=== PATIENT | male | born 1985 | race Caucasian/White ===

== ENCOUNTER 2017-08-26 14:51 | Emergency (ER) | payer SELFPAY ==
--- NOTE | 2017-08-26 15:34 | ER Document Report ---
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 He states that the bleeding is controlled, he applied a pressure dressing at home. He reports his last tetanus was given here. He has taken ibuprofen with no improvement of pain at home. TRAVEL OUTSIDE OF THE [place] IN LAST 30 DAYS: No - Related Data Allergies/Adverse Reactions: No Known Allergies Allergy (Verified 08/26/17 14:52) Past Medical History - General Information source: Patient - Social History Smoking Status: Current Every Day Smoker Family History: Reviewed & Not Pertinent Pulmonary Medical History: Reports: Hx Asthma Past Surgical History: Reports: Hx Appendectomy, Hx Orthopedic Surgery - right rotator cuff - Immunizations Immunizations up to date: Yes Hx Diphtheria, Pertussis, Tetanus Vaccination: Yes - unknown Review of Systems - Review of Systems Constitutional: No symptoms reported EENT: No symptoms reported Cardiovascular: No symptoms reported Respiratory: No symptoms reported Gastrointestinal: No symptoms reported Genitourinary: No symptoms reported Male Genitourinary: No symptoms reported Musculoskeletal: No symptoms reported Skin: See HPI Hematologic/Lymphatic: No symptoms reported Neurological/Psychological: No symptoms reported Physical Exam - Vital signs Vitals: Temp Pulse Resp BP Pulse Ox 98.6 F 101 H 17 137/80 H 97 08/26/17 14:55 08/26/17 14:55 08/26/17 14:55 08/26/17 14:55 08/26/17 14:55 - Notes Notes: PHYSICAL EXAM: CONSTITUTIONAL: Alert and oriented, well-appearing and in no acute distress. Speaking in full sentences without difficulty, sitting upright on exam bed. HENT: Normocephalic, atraumatic. Trachea midline. Uvula midline. Moist mucous membranes. EYES: Pupils equal round and reactive to light, EOM intact. Sclera anicteric, conjunctiva are normal. No entrapment. NECK: supple without lymphadenopathy. No midline tenderness or paraspinous muscle spasms. No step-offs or deformities. ROM intact. HEART: Regular rate and rhythm without murmurs. LUNGS: CTAB and equal. No wheezes, rales or rhonchi. EXTREMITIES: no bony tenderness, erythema, edema, ecchymosis or deformity. Normal range of motion, no pitting edema. No cyanosis. Cap Refill <3 seconds. NEURO: Cranial nerves grossly intact. Normal sensory/motor exams. PSYCH: Normal mood, normal affect. SKIN: Warm and dry. Normal turgor. 1.3 cm irregular shaped laceration to tip of 3rd digit on left hand not involving nail. Course - Re-evaluation Re-evalutation: 08/26/17 16:47 Patient seen and examined. 1.3 cm irregular shaped laceration to pulp of 3rd digit on left hand, bleeding controlled with pressure dressing. Unable to approximate edges, xray obtained, no bony involvement to wound. Tetanus is UTD. Digital block performed for pain relief and wound was cleaned with betadine solution. Wound will be left to heal by secondary intention, applied local abx ointment and will treat with oral abx to cover for empiric infection. Discussed wound care at home. - Vital Signs Vital signs: Temp Pulse Resp BP Pulse Ox 98.6 F 101 H 17 137/80 H 97 08/26/17 14:55 08/26/17 14:55 08/26/17 14:55 08/26/17 14:55 08/26/17 14:55 - Diagnostic Test Radiology reviewed: Image reviewed, Reports reviewed Procedures - Laceration/Wound Repair Left 3rd digit Wound length (cm): 1.3 Wound's Depth, Shape: Irregular Laceration pre-procedure: Betadine prep applied Anesthetic type: 1% Lidocaine - 7 cc Volume Anesthetic (mLs): 7 Wound explored: Clean Wound Debrided: Minimal Post-procedure wound care: Sterile dressing applied Post-procedure NV exam normal: Yes Complications: No Notes: 08/26/17 17:50 Unable to approximate edges, patient did not have piece of tissue that he cut off with him. Wound will have to heal by secondary intention. Discharge - Discharge Clinical Impression: Laceration of finger of left hand Qualifiers: Encounter type: initial encounter Finger: middle finger Damage to nail status: without damage Foreign body presence: without foreign body Qualified Code(s): S61.213A - Laceration without foreign body of left middle finger without damage to nail, initial encounter Condition: Stable Disposition: HOME, SELF-CARE Additional Instructions: NON-SUTURED LACERATION: Your laceration did not require suturing. Some lacerations cannot be sutured because of increased infection risk, while others simply don't need stitches because they are shallow or very short. Your injury should be protected while it heals. Usually complete healing takes 10 to 14 days. Keep the dressing clean and dry, and change it every day. If you notice increasing pain, redness, swelling, drainage, or tender lumps in the armpit or groin above the injury, infection may be present. You should call the doctor at once. SOAP CLEANSING: Gently wash the wound daily using a mild soap (like Ivory, Phisoderm, Neutrogena). Use warm water, rubbing gently until all debris, ooze, and crusting have been washed from the wound. Allow to dry briefly (about 10 minutes) after cleaning. Repeat this cleansing at least three times a day for the first two days and then once or twice a day. ANTIBIOTIC OINTMENT PROTECTION: Your wounds are such that dressing them is not practical or optional. After cleansing, you should apply a thin coating of antibiotic ointment ( Bacitracin, not Neosporin) to the wounds at least three times daily. This lessens infection risk, and may decrease the amount of scarring. Use a q-tip or dull butter knife, not your finger, to apply this ointment. Any debris or ooze which builds up in the ointment should be gently rubbed off with a sterile gauze pad. Harder crusting may need to be gently scrubbed off with a clean wash cloth with soap and warm water, perhaps applying a warm, wet wash cloth to the wound for ten minutes first. Development of redness, severe itching, or blistering may mean allergy to the ointment. See the doctor. PROPHYLACTIC ANTIBIOTIC: The antibiotics which have been prescribed are designed to decrease the risk of infection. Only certain types of wounds benefit from this -- the typical cut, scrape, or burn DOES NOT require antibiotics. Of course, infection can still occur despite the use of prophylactic antibiotics. Your wound will heal with less chance of an infectious complication if you take the medication as directed. The most important dose is the FIRST dose, so don't delay filling the prescription! ORAL NARCOTIC MEDICATION: You have been given a prescription for pain control. This medication is a narcotic. It's best taken with food, as nausea can result if taken on an empty stomach. Don't operate machinery or drive within six hours of taking this medication. Do not combine this medicine with alcohol, or with any medication which can cause sedation (such as cold tablets or sleeping pills) unless you get permission from the physician. Narcotics tend to cause constipation. If possible, drink plenty of fluids and eat a diet high in fiber and fruits. FOLLOW-UP CARE: Please return in ___5__ days for an infection check and dressing change. If you have been referred to another physician for follow-up care, call that physicians office for an appointment as you were instructed. If you experience a significant change in your laceration, or if you are concerned there may be an infection (swelling, redness, drainage, increasing tenderness, red streaks, tender lumps in the armpit or groin above the laceration, or fever) , return to the Emergency Department immediately re-evaluation. Prescriptions: Cephalexin Monohydrate [Keflex 500 mg Capsule] 500 mg PO Q6H 7 Days capsule Hydrocodone/Acetaminophen [[place] 5-325 mg Tablet] 1 tab PO Q6H PRN #12 tablet PRN Reason: Forms: Elevated Blood Pressure, Return to Work Referrals: ALEJANDRO SOTELO MD [ACTIVE STAFF] - Follow up in 1 week
[2017-08-26] MEDS ORDERED: HYDROCODONE/ACETAMINOPHEN 5-325 MG TABLET PO ONE (15:38)
--- NOTE | 2017-08-26 16:10 | RADIOLOGY REPORT (SQ) ---
EXAM DESCRIPTION: HAND LEFT 3 VIEWS COMPLETED DATE/TIME: 08/26/2017 3:55 pm REASON FOR STUDY: laceration to tip of middle finger COMPARISON: None. EXAM PARAMETERS: NUMBER OF VIEWS: Three views. TECHNIQUE: AP, lateral and oblique radiographic images acquired of the left hand. LIMITATIONS: None. FINDINGS: Laceration along the left 3rd finger tip. No retained radiopaque foreign body. No underl lee injury to the distal tuft 3rd finger distal phalanx. Artifact from overlying gauze. IMPRESSION: No acute bony injury. TECHNICAL DOCUMENTATION: JOB ID: [id number] [employer]- All Rights Reserved
[2017-08-26] MEDS ORDERED: LIDOCAINE 1% INJ (10 MG/ML) 10 ML MDV INJ ONE (16:56)
[2017-08-26] MEDS ORDERED: LIDOCAINE 1% INJ-PF (10 MG/ML) 30 ML SDV INJ ONE (17:01)
[2017-08-26 20:31] VITALS: BP 130/91
== END 2017-08-26 17:30 | disposition home or self-care (01) ==
LOC: ER 14:51
PROC: 0HQGXZZ Repair Left Hand Skin, External Approach (ICD-10-PCS; principal; 2017-08-26)
DX: S61.213A Laceration without foreign body of left middle finger without damage to nail, initial encounter (principal); W26.0XXA Contact with knife, initial encounter; Y93.G1 Activity, food preparation and clean up; F17.200 Nicotine dependence, unspecified, uncomplicated
CPT/HCPCS: 99283; 73130; 12001; J3490

== ENCOUNTER 2017-12-19 15:50 | Emergency (ER) | payer OTHER ==
[2017-12-19 15:55] VITALS: BP 124/82
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
== END 2017-12-19 16:56 | disposition home or self-care (01) ==
LOC: ER 15:50
DX: M54.2 Cervicalgia (principal); M25.512 Pain in left shoulder; M25.562 Pain in left knee; R51 Headache; V58.5XXA Driver of pick-up truck or van injured in noncollision transport accident in traffic accident, initial encounter; Y92.410 Unspecified street and highway as the place of occurrence of the external cause; F17.200 Nicotine dependence, unspecified, uncomplicated
CPT/HCPCS: 99283; 72125; L0120

== ENCOUNTER 2018-07-23 12:57 | Emergency (ER) | payer SELFPAY ==
[2018-07-23 13:10] VITALS: BP 139/83
[2018-07-23] MEDS ORDERED: MECLIZINE HCL 25 MG TABLET PO ONE (14:01)
[2018-07-23] MEDS ORDERED: ONDANSETRON 4 MG TAB.RAPDIS PO ONE (14:01)
[2018-07-23] MEDS ORDERED: AMOXICILLIN TRIHYDRATE 500 MG CAPSULE PO ONE (14:01)
--- NOTE | 2018-07-23 14:07 | ER Document Report ---
HPI - HPI Patient complains to provider of: Ear pressure Time Seen by Provider: 07/23/18 13:53 Onset: Other - 5 days Onset/Duration: Persistent Quality of pain: Achy Pain Level: 3 Context: Patient presents complaining of pressure in his ears and feeling off balance with certain position changes. Patient denies any fever or headache. Patient denies any chest pain or dyspnea. Associated Symptoms: Earache. denies: Nonproductive cough, Productive cough, Fever, Nausea Exacerbated by: Denies Relieved by: Denies Similar symptoms previously: No Recently seen / treated by doctor: No - ROS ROS below otherwise negative: Yes Systems Reviewed and Negative: Yes All other systems reviewed and negative - CONSTITUTIONAL Constitutional: DENIES: Fever, Chills - EENT EENT: REPORTS: Ear Pain, Nasal Drainage-Clear - NEURO Neurology: REPORTS: Dizzinesss / Vertigo. 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 IN LAST 30 DAYS: No - HEENT HEENT: Atraumatic, Normocephalic, Tympanic Membrane Red - mild bilat, Tympanic Membrane Bulging. negative: Pharyngeal Exudate, Pharyngeal Tenderness, Pharyngeal Erythema - NECK Neck: Normal Inspection, Supple. negative: Lymphadenopathy-Left, Lymphadenopathy-Right - RESPIRATORY Respiratory: Breath Sounds Normal, No Respiratory Distress, Chest Non-Tender. negative: Rales, Rhonchi, Wheezing - CARDIOVASCULAR Cardiovascular: Regular Rate, Regular Rhythm, No Murmur - GI/ABDOMEN Gastrointestinal: Abdomen Soft, Abdomen Non-Tender - BACK Back: Normal Inspection. negative: CVA Tenderness-Right, CVA Tenderness-Left - MUSCULOSKELETAL/EXTREMETIES Musculoskeletal/Extremeties: JORDANA PADILLA - NEURO Level of Consciousness: Awake, Alert, Appropriate Motor/Sensory: No Motor Deficit - DERM Integumentary: Warm, Dry, No Rash Course - Re-evaluation Re-evalutation: 07/23/18 14:02 Patient denies any headache or chest pain symptoms. Patient with otitis media and vertiginous symptoms, no focal neurologic deficits. Discussed good return precautions. - Vital Signs Vital signs: Temp Pulse Resp BP Pulse Ox 98.8 F 78 18 139/83 H 100 07/23/18 13:08 07/23/18 13:08 07/23/18 13:08 07/23/18 13:08 07/23/18 13:08 Discharge - Discharge Clinical Impression: Vertigo Otitis media Qualifiers: Otitis media type: unspecified Chronicity: acute Qualified Code(s): H66.90 - Otitis media, unspecified, unspecified ear Condition: Stable Disposition: HOME, SELF-CARE Instructions: Amoxicillin ([facility]), Meclizine ([facility]), Otitis Media ([facility]), Vertigo ([facility]) Additional Instructions: Return immediately for any new or worsening symptoms Followup with your primary care provider, call tomorrow to make a followup appointment Prescriptions: Amoxicillin 500 mg PO TID #30 tablet Meclizine HCl [Antivert 25 mg Tablet] 25 mg PO ASDIR PRN #15 tablet PRN Reason: Ondansetron HCl [Zofran 4 mg Tablet] 1 - 2 tab PO Q6 PRN #15 tablet PRN Reason: Forms: Smoking Cessation Education Referrals: [facility] [Provider Group] - Follow up as needed
== END 2018-07-23 14:21 | disposition home or self-care (01) ==
LOC: ER 12:57
DX: H66.90 Otitis media, unspecified, unspecified ear (principal); R42 Dizziness and giddiness; H92.09 Otalgia, unspecified ear; R09.89 Other specified symptoms and signs involving the circulatory and respiratory systems; F17.200 Nicotine dependence, unspecified, uncomplicated; J45.909 Unspecified asthma, uncomplicated
CPT/HCPCS: 99282; S0119